=== PATIENT | female | born 1930 | race Caucasian/White ===

== ENCOUNTER 2017-04-04 10:25 | Observation (INO) | payer OTHER ==
--- NOTE | 2017-04-04 10:46 | PDOC ---
History of Present Illness - General Chief Complaint: Lightheaded Stated Complaint: PCP SENT Time Seen by Provider: 04/04/17 10:46 - History of Present Illness Initial Comments: 04/04/17 11:41 Ms. Perez is an 86 year old female with a significant past medical history of type two diabetes, osteoarthritis and DJD, hypertension, and hyperlipedemia, who presents to the emergency department on advice of her PCP for recent severe dizziness for the past 3-4 days. The patient denies chest pain, shortness of breath, and headache. Denies fever, chills, nausea, vomit, diarrhea and constipation. Denies dysuria, frequency, urgency and hematuria. Allergies: NKDA Past History - Past Medical History Allergies/Adverse Reactions: Allergies Allergy/AdvReac Type Severity Reaction Status Date / Time No Known Allergies Allergy Verified 04/04/17 10:34 Home Medications: Ambulatory Orders Unobtainable Home Med List 0 dose .ROUTE UTDICT 01/24/13 Diabetes: Yes HTN: Yes Hypercholesterolemia: Yes - Immunization History Immunization Up to Date: Yes - Suicide/Smoking/Psychosocial Hx Smoking Status: No Smoking History: Never smoked Have you smoked in the past 12 months: No Number of Cigarettes Smoked Daily: 0 Information on smoking cessation initiated: No Hx Alcohol Use: No Drug/Substance Use Hx: No Substance Use Type: None Review of Systems - Review of Systems Comments:: 04/04/17 11:44 GENERAL/CONSTITUTIONAL: No fever or chills. No weakness. HEAD, EYES, EARS, NOSE AND THROAT: No change in vision. No ear pain or discharge. No sore throat. CARDIOVASCULAR: No chest pain or shortness of breath RESPIRATORY: No cough, wheezing, or hemoptysis. GASTROINTESTINAL: No nausea, vomiting, diarrhea or constipation. GENITOURINARY: No dysuria, frequency, or change in urination. MUSCULOSKELETAL: No joint or muscle swelling or pain. No neck or back pain. SKIN: No rash NEUROLOGIC: +Dizziness for the past several weeks that has gotten worse over the last 3-4 days. No headache, vertigo, loss of consciousness, or change in strength/sensation. ENDOCRINE: No increased thirst. No abnormal weight change HEMATOLOGIC/LYMPHATIC: No anemia, easy bleeding, or history of blood clots. ALLERGIC/IMMUNOLOGIC: No hives or skin allergy. *Physical Exam - Vital Signs Last Vital Signs Temp Pulse Resp BP Pulse Ox 98.2 F 95 H 15 134/76 97 04/04/17 10:34 04/04/17 10:34 04/04/17 10:34 04/04/17 10:34 04/04/17 10:34 - Physical Exam Comments: 04/04/17 11:44 GENERAL: Awake, alert, and fully oriented, in no acute distress HEAD: No signs of trauma, normocephalic, atraumatic EYES: PERRLA, EOMI, sclera anicteric, conjunctiva clear ENT: Auricles normal inspection, hearing grossly normal, nares patent, oropharynx clear without exudates. Moist mucosa NECK: Normal ROM, supple, no lymphadenopathy, JVD, or masses LUNGS: No distress, speaks full sentences, clear to auscultation bilaterally HEART: Regular rate and rhythm, normal S1 and S2, no murmurs, rubs or gallops, peripheral pulses normal and equal bilaterally. ABDOMEN: Soft, nontender, normoactive bowel sounds. No guarding, no rebound. No masses EXTREMITIES: Normal inspection, Normal range of motion, no edema. No clubbing or cyanosis. NEUROLOGICAL: Cranial nerves II through XII grossly intact. Normal speech, normal gait, no focal sensorimotor deficits SKIN: Warm, Dry, normal turgor, no rashes or lesions noted. ED Treatment Course - LABORATORY CBC & Chemistry Diagram: 04/04/17 11:50 04/04/17 11:50 Medical Decision Making - Medical Decision Making 04/04/17 13:31 Ms. Perez presents with new unexplained dizziness for admission to Dr. William for overnight observation. Head CT negative, labs as below. Will admit for further neuro/cardiac follow-up. Laboratory Results - last 24 hr 04/04/17 04/04/17 11:50 11:50 WBC 10.4 H D RBC 4.86 Hgb 13.0 Hct 40.7 MCV 83.9 MCH 26.8 MCHC 32.0 RDW 13.7 Plt Count 169 MPV 10.6 D Neutrophils % 59.9 Lymphocytes % 25.8 D Monocytes % 11.9 H Eosinophils % 2.0 Basophils % 0.4 Sodium 143 Potassium 4.5 D Chloride 110 H D Carbon Dioxide 27 Anion Gap 6 L BUN 29 H D Creatinine 1.0 D Creat Clearance w eGFR 52.69 Random Glucose 107 H Calcium 9.0 Total Bilirubin 0.3 D AST 21 ALT 23 Alkaline Phosphatase 109 Creatine Kinase 75 Troponin I < 0.02 Total Protein 7.9 Albumin 3.8 *DC/Admit/Observation/Transfer Diagnosis at time of Disposition: Dizziness - Discharge Dispostion Admit: Yes - Referrals Referrals: Remigio William MD [Primary Care Provider] -
--- NOTE | 2017-04-04 11:09 | PDOC ---
Attending Attestation - Resident Resident Name: Tr Masterson - ED Attending Attestation I have performed the following: I have examined & evaluated the patient, The case was reviewed & discussed with the resident, I agree w/resident's findings & plan, Exceptions are as noted - HPI HPI: 04/04/17 11:08 Dizzy/Weak - Physicial Exam PE: 04/04/17 11:08 VSS/NAD - Medical Decision Making 04/04/17 11:[address] Masterson's Assessment and Plan
[2017-04-04 12:27] LABS: BASOPHIL 0.4 % (0-2.0); MCH 26.8 pg (25.7-33.7); MEAN CELL VOLUME 83.9 fl (80-96); MEAN PLT VOLUME 10.6 fl (7.5-11.1); NEUTROPHILS 59.9 % (42.8-82.8); PLATELET COUNT 169 K/MM3 (134-434); RDW 13.7 % (11.6-15.6); WHITE BLOOD COUNT 10.4 K/mm3 (4.0-10.0)
[2017-04-04 12:58] LABS: ALBUMIN 3.8 g/dl (3.4-5.0); ANION GAP 6 (8-16); BILIRUBIN,TOTAL 0.3 mg/dL (0.2-1.0); CO2 27 mmol/L (21-32); GLUCOSE,RANDOM 107 mg/dL (74-106); SGOT/AST 21 U/L (15-37); SGPT/ALT 23 U/L (12-78); TOT PROT 7.9 g/dl (6.4-8.2)
[2017-04-04 13:01] LABS: ALK PHOS 109 U/L (45-117); CPK 75 IU/L (26-192); TROPONIN I < 0.02 ng/ml (0.00-0.05)
--- NOTE | 2017-04-04 13:08 | EKG ---
Test Reason : Blood Pressure : / mmHG Vent. Rate : 090 BPM Atrial Rate : 090 BPM P-R Int : 140 ms QRS Dur : 078 ms QT Int : 360 ms P-R-T Axes : 053 037 058 degrees QTc Int : 440 ms SINUS RHYTHM WITH ATRIAL PREMATURE BEATS NORMAL ST-T WAVES WHEN COMPARED WITH ECG OF 24-JAN-2013 12:14, NO MAJOR CHANGES SEEN. REPEAT EKG IF CLINICALLY INDICATED Confirmed by MELISSA ALFONSO MD ([id number]) on 04/04/2017 1:07:59 PM Referred By: Confirmed By:MELISSA ALFONSO MD
[2017-04-04] MEDS ORDERED: MECLIZINE HCL 25 MG TABLET (FP) PO ONE (13:45)
[2017-04-04] MEDS ORDERED: SODIUM CHLORIDE 1,000 ML IV STA (13:45)
[2017-04-04] MEDS ORDERED: MECLIZINE HCL 25 MG TABLET (FP) ONE (13:50)
[2017-04-04 14:19] LABS: URINE APPEARANCE CLEAR; URINE BILIRUBIN NEGATIVE (NEGATIVE); URINE BLOOD NEGATIVE (NEGATIVE); URINE COLOR LTYELLOW; URINE GLUCOSE (UA) NEGATIVE (NEGATIVE); URINE KETONE NEGATIVE (NEGATIVE); URINE LEUK ESTERASE TRACE (NEGATIVE); URINE NITRITE NEGATIVE (NEGATIVE); URINE PROTEIN NEGATIVE (NEGATIVE); URINE UROBILINOGEN NEGATIVE mg/dL (0.2-1.0)
[2017-04-04 14:21] LABS: URINE HYALINE CAST 3 /lpf; URINE RBC 1 /hpf (0-3); URINE WBC 2 /hpf (3-5)
[2017-04-04 16:10] VITALS: BMI 35.9
[2017-04-04] MEDS ORDERED: FLU VACCINE QUAD 60 MCG/0.5 ML (MDV 17-18) IM ONE (16:10)
--- NOTE | 2017-04-04 16:22 | CON.CARD ---
Consult Consult Specialty:: Cardiology Referred by:: Dr. William Reason for Consultation:: Near syncope - History of Present Illness Chief Complaint: Dizziness and heaviness of the head. History of Present Illness: 86 year-old woman with a PMHx of HTN, DM, hyperlipidemia and osteoarthritis admitted 04/04/2017 with near syncope. The patient has been experiencing heaviness at the back of her head, pushing her forward with associated weakness for 3-4 days. Her symptoms could last for all day with episodes of near syncope. She denies chest pain, SOB at rest or palpitation. She has sedentary life with limited exercise tolerance. Her ECG in ED is normal. - History Source History Provided By: Patient, Transfer Record Limitations to Obtaining History: Poor Historian - Past Medical History Musculoskeletal: Yes: Osteoarthritis - Alcohol/Substance Use Hx Alcohol Use: No - Smoking History Smoking history: Never smoked Have you smoked in the past 12 months: No Aproximately how many cigarettes per day: 0 - Social History History of Recent Travel: No Home Medications - Allergies Allergies/Adverse Reactions: Allergies Allergy/AdvReac Type Severity Reaction Status Date / Time No Known Allergies Allergy Verified 04/04/17 10:34 - Home Medications Home Medications: Ambulatory Orders Unobtainable Home Med List 0 dose .ROUTE UTDICT 01/24/13 Review of Systems - Review of Systems Constitutional: reports: No Symptoms Eyes: reports: No Symptoms HENT: reports: No Symptoms Neck: reports: No Symptoms Cardiovascular: reports: No Symptoms Respiratory: reports: No Symptoms Gastrointestinal: reports: No Symptoms Genitourinary: reports: No Symptoms Musculoskeletal: reports: Extremity Pain, Joint Pain Integumentary: reports: No Symptoms Neurological: reports: Syncope Endocrine: reports: No Symptoms Hematology/Lymphatic: reports: No Symptoms Psychiatric: reports: No Symptoms - Risk Factors Known Risk Factors: Yes: Diabetes Mellitus, Hypercholesterolemia, Hypertension Vital Signs: Vital Signs Temperature 98.2 F 04/04/17 10:34 Pulse Rate 92 H 04/04/17 15:35 Respiratory Rate 18 04/04/17 15:35 Blood Pressure 136/76 04/04/17 15:35 O2 Sat by Pulse Oximetry (%) 93 L 04/04/17 15:35 Constitutional: Yes: Well Nourished, No Distress, Calm Eyes: Yes: Conjunctiva Clear, EOM Intact HENT: Yes: Atraumatic, Normocephalic Neck: Yes: Supple, Trachea Midline Respiratory: Yes: Regular, Other (Bibasilar crackles) Gastrointestinal: Yes: Normal Bowel Sounds, Soft Cardiovascular: Yes: Regular Rate and Rhythm Heart Sounds: Yes: S1, S2 Murmur: Yes: Systolic Murmur, Grade 1 Musculoskeletal: Yes: WNL Edema: Yes Edema: LLE: Trace, RLE: Trace Peripheral Pulses WNL: Yes Imaging - Results EKG: Image Reviewed (Sinus rhythm, normal axis. Normal ST-T.) Assessment/Plan 86 year-old woman with a PMHx of HTN, DM, hyperlipidemia and osteoarthritis admitted 04/04/2017 with near syncope with sensation of occipital heaviness. She has mild fluid overload without SOB at rest. Her BP and heart rate stable. ECG is normal. The etiology of her symptoms of her occipital heaviness and near syncope is unclear. But likely neurological origin. Neuro evaluation. Tele to rule out cardiac arrhythmia. Mild fluid overload without dyspnea: Echo for cardiac function. Resume home BP meds. We will follow.
[2017-04-04] MEDS ORDERED: ACETAMINOPHEN 325 MG TABLET (FP) PO PRN (20:16)
[2017-04-04] MEDS ORDERED: MECLIZINE HCL 25 MG TABLET (FP) PO PRN (20:16)
--- NOTE | 2017-04-04 20:54 | HP ---
Admitting History and Physical - Primary Care Physician PCP: Remigio William - Admission Chief Complaint: DIZZINESS, PALPITATIONS FATIGUE History of Present Illness: I WAS CALLED BY THE PHYSICAL THERAPIST AT HER PT SESSION AND HE EXPLAINED THAT THE PATIENT WAS C/O DIZZINESS AND CHEST HEAVINESS/PRESSURE. PATIENT DENIED VERTIGO BUT C/O LIGHT HEADED FEELING WITH EXTREME FATIGUE. PATIENT HAS A HISTORY OF HTN, LIPIDEMIA, OBESITY WITH UNSTEADY GAIT AND WAS REFERRED TO PHYSICAL THERAPY FOR GAIT TRAINING. History Source: Patient, Medical Record - Past Medical History Cardiovascular: Yes: HTN Musculoskeletal: Yes: Osteoarthritis - Smoking History Smoking history: Never smoked Have you smoked in the past 12 months: No Aproximately how many cigarettes per day: 0 - Alcohol/Substance Use Hx Alcohol Use: No - Social History History of Recent Travel: No Home Medications - Allergies Allergies/Adverse Reactions: Allergies Allergy/AdvReac Type Severity Reaction Status Date / Time No Known Allergies Allergy Verified 04/04/17 10:34 - Home Medications Home Medications: Ambulatory Orders Unobtainable Home Med List 0 dose .ROUTE UTDICT 01/24/13 Review of Systems - Review of Systems Constitutional: reports: Weakness Eyes: reports: No Symptoms HENT: reports: No Symptoms Neck: reports: No Symptoms Cardiovascular: reports: Chest Pain, Palpitations, Shortness of Breath Respiratory: reports: SOB Gastrointestinal: reports: No Symptoms Genitourinary: reports: No Symptoms Musculoskeletal: reports: No Symptoms Integumentary: reports: No Symptoms Neurological: reports: Pre-Existing Deficit, Unsteady Gait, Weakness Endocrine: reports: No Symptoms Hematology/Lymphatic: reports: No Symptoms Psychiatric: reports: No Symptoms Physical Examination Vital Signs: Vital Signs Temperature 98.2 F 04/04/17 10:34 Pulse Rate 92 H 04/04/17 15:35 Respiratory Rate 20 04/04/17 17:19 Blood Pressure 136/76 04/04/17 15:35 O2 Sat by Pulse Oximetry (%) 96 04/04/17 17:19 Constitutional: Yes: Mild Distress Eyes: Yes: WNL HENT: Yes: WNL Neck: Yes: WNL Cardiovascular: Yes: WNL Respiratory: Yes: WNL Gastrointestinal: Yes: WNL Renal/: Yes: WNL Musculoskeletal: Yes: WNL Extremities: Yes: WNL Edema: Yes Edema: LLE: Trace, RLE: Trace Peripheral Pulses WNL: Yes Integumentary: Yes: WNL Wound/Incision: Yes: Clean/Dry Neurological: Yes: Pre-Existing Deficit ...Motor Strength: LLE, RLE Psychiatric: Yes: WNL Problem List - Problems (1) Dizziness Code(s): R42 - DIZZINESS AND GIDDINESS (2) Chest pain Code(s): R07.9 - CHEST PAIN, UNSPECIFIED Qualifiers: Chest pain type: chest pain on breathing Qualified Code(s): R07.1 - Chest pain on breathing; R07.81 - Pleurodynia (3) Hypertension Code(s): I10 - ESSENTIAL (PRIMARY) HYPERTENSION Qualifiers: Hypertension type: essential hypertension Qualified Code(s): I10 - Essential (primary) hypertension (4) Obesity Code(s): E66.9 - OBESITY, UNSPECIFIED Qualifiers: Obesity type: due to excess calories (5) Gait abnormality Code(s): R26.9 - UNSPECIFIED ABNORMALITIES OF GAIT AND MOBILITY Assessment/Plan STRESS TEST CARDIOLOGY EVAL PT EVAL CAROTID/ECHO R/O SYNCOPE CAUSE MONITOR LABS TELE FOR ARRYTHMIA EVAL SN[facility]
[2017-04-04] MEDS: ATORVASTATIN CA 20 MG TABLET (FP) PO SCH (21:09)
[2017-04-05 07:22] LABS: MCH 26.5 pg (25.7-33.7); MCHC 31.7 g/dl (32.0-36.0); MEAN CELL VOLUME 83.6 fl (80-96); MEAN PLT VOLUME 10.4 fl (7.5-11.1); PLATELET COUNT 154 K/MM3 (134-434); RDW 13.5 % (11.6-15.6); WHITE BLOOD COUNT 9.8 K/mm3 (4.0-10.0)
[2017-04-05 07:43] LABS: ALBUMIN 3.3 g/dl (3.4-5.0); ANION GAP 7 (8-16); CALCIUM 8.5 mg/dL (8.5-10.1); CO2 27 mmol/L (21-32); GLUCOSE,RANDOM 117 mg/dL (74-106)
[2017-04-05 07:48] LABS: ALK PHOS 98 U/L (45-117); BILIRUBIN,TOTAL 0.3 mg/dL (0.2-1.0); CHOLESTEROL 164 mg/dL (50-200); CREATININE 0.8 mg/dL (0.55-1.02); SGOT/AST 17 U/L (15-37); SGPT/ALT 18 U/L (12-78); TOT PROT 6.8 g/dl (6.4-8.2)
[2017-04-05 09:01] LABS: CPK 57 IU/L (26-192)
[2017-04-05 09:06] LABS: TROPONIN I < 0.02 ng/ml (0.00-0.05)
[2017-04-05] MEDS ORDERED: DIPYRIDAMOLE STRESS TEST 41.5 MG in DEXTROSE 5%-WATER - 33.2 ML IVPB ONE (10:00)
--- NOTE | 2017-04-05 10:35 | CONSULT ---
Consult - text type - Consultation Consultation Note: Neurology History of Present Illness Ms. Perez is an 86 year old female with a significant past medical history of type two diabetes, osteoarthritis and DJD, hypertension, and hyperlipedemia, who presented to the emergency department on advice of her PCP for recent severe dizziness for the past 3-4 days. She reports unsteady sensation and was given Meclezine with some relief. CT head was completed and did not show acute changes. The patient denies chest pain, shortness of breath, and headache. Denies fever, chills, nausea, vomit, diarrhea and constipation. Denies dysuria, frequency, urgency and hematuria. Past History - Past Medical History Allergies/Adverse Reactions: Allergies Allergy/AdvReac Type Severity Reaction Status Date / Time No Known Allergies Allergy Verified 04/04/17 10:34 Home Medications: Ambulatory Orders Unobtainable Home Med List 0 dose .ROUTE UTDICT 01/24/13 Diabetes: Yes HTN: Yes Hypercholesterolemia: Yes - Immunization History Immunization Up to Date: Yes - Suicide/Smoking/Psychosocial Hx Smoking Status: No Smoking History: Never smoked Have you smoked in the past 12 months: No Number of Cigarettes Smoked Daily: 0 Information on smoking cessation initiated: No Hx Alcohol Use: No Drug/Substance Use Hx: No Substance Use Type: None Review of Systems GENERAL/CONSTITUTIONAL: No fever or chills. No weakness. HEAD, EYES, EARS, NOSE AND THROAT: No change in vision. No ear pain or discharge. No sore throat. CARDIOVASCULAR: No chest pain or shortness of breath RESPIRATORY: No cough, wheezing, or hemoptysis. GASTROINTESTINAL: No nausea, vomiting, diarrhea or constipation. GENITOURINARY: No dysuria, frequency, or change in urination. MUSCULOSKELETAL: No joint or muscle swelling or pain. No neck or back pain. SKIN: No rash NEUROLOGIC: +Dizziness for the past several weeks that has gotten worse over the last 3-4 days. No headache, vertigo, loss of consciousness, or change in strength/sensation. ENDOCRINE: No increased thirst. No abnormal weight change HEMATOLOGIC/LYMPHATIC: No anemia, easy bleeding, or history of blood clots. ALLERGIC/IMMUNOLOGIC: No hives or skin allergy. *Physical Exam Vital Signs Temperature 97.9 F 04/05/17 05:00 Pulse Rate 76 04/05/17 05:00 Respiratory Rate 20 04/05/17 05:00 Blood Pressure 137/79 04/05/17 05:00 O2 Sat by Pulse Oximetry (%) 97 04/05/17 04:17 - Physical Exam Comments: 04/04/17 11:44 GENERAL: Awake, alert, and fully oriented, in no acute distress HEAD: No signs of trauma, normocephalic, atraumatic EYES: PERRLA, EOMI, sclera anicteric, conjunctiva clear ENT: Auricles normal inspection, hearing grossly normal, nares patent, oropharynx clear without exudates. Moist mucosa NECK: Normal ROM, supple, no lymphadenopathy, JVD, or masses LUNGS: No distress, speaks full sentences, clear to auscultation bilaterally HEART: Regular rate and rhythm, normal S1 and S2, no murmurs, rubs or gallops, peripheral pulses normal and equal bilaterally. ABDOMEN: Soft, nontender, normoactive bowel sounds. No guarding, no rebound. No masses EXTREMITIES: Normal inspection, Normal range of motion, no edema. No clubbing or cyanosis. NEUROLOGICAL: Cranial nerves II through XII grossly intact. Motor intact, sensory normal, finger to nose intact SKIN: Warm, Dry, normal turgor, no rashes or lesions noted. CBCD WBC 9.8 K/mm3 (4.0-10.0) 04/05/17 05:30 RBC 4.66 M/mm3 (3.60-5.2) 04/05/17 05:30 Hgb 12.3 GM/dL (10.7-15.3) 04/05/17 05:30 Hct 38.9 % (32.4-45.2) 04/05/17 05:30 MCV 83.6 fl (80-96) 04/05/17 05:30 MCHC 31.7 g/dl (32.0-36.0) L 04/05/17 05:30 RDW 13.5 % (11.6-15.6) 04/05/17 05:30 Plt Count 154 K/MM3 (134-434) 04/05/17 05:30 MPV 10.4 fl (7.5-11.1) 04/05/17 05:30 CMP Sodium 142 mmol/L (136-145) 04/05/17 05:30 Potassium 4.1 mmol/L (3.5-5.1) 04/05/17 05:30 Chloride 108 mmol/L (98-107) H 04/05/17 05:30 Carbon Dioxide 27 mmol/L (21-32) 04/05/17 05:30 Anion Gap 7 (8-16) L 04/05/17 05:30 BUN 21 mg/dL (7-18) H D 04/05/17 05:30 Creatinine 0.8 mg/dL (0.55-1.02) 04/05/17 05:30 Creat Clearance w eGFR > 60 (>60) 04/05/17 05:30 Calcium 8.5 mg/dL (8.5-10.1) 04/05/17 05:30 Total Bilirubin 0.3 mg/dL (0.2-1.0) 04/05/17 05:30 AST 17 U/L (15-37) 04/05/17 05:30 ALT 18 U/L (12-78) D 04/05/17 05:30 Alkaline Phosphatase 98 U/L (45-117) 04/05/17 05:30 Total Protein 6.8 g/dl (6.4-8.2) 04/05/17 05:30 Albumin 3.3 g/dl (3.4-5.0) L 04/05/17 05:30 CT head reviewed Plan: 86 year old female with a significant past medical history of type two diabetes , osteoarthritis and DJD, hypertension, and hyperlipedemia, who presented to the emergency department on advice of her PCP for recent severe dizziness for the past 3-4 days. She reports unsteady sensation and was given Meclezine with some relief. CT head was completed and did not show acute changes. MRI brain ordered. Continue Meclezine 25mg PRN. No sudden head movements, eply manuevers. Blood pressure control, goal range < 140/90. Fall precautions recommended.
[2017-04-05] MEDS: amLODIPine BESYLATE 10 MG TABLET (FP) PO SCH (13:10)
[2017-04-05] MEDS: LISINOPRIL 20 MG TABLET (FP) PO SCH (13:10)
[2017-04-05] MEDS: ASPIRIN COATED 81 MG TABLET.EC PO SCH (13:11)
--- NOTE | 2017-04-05 14:33 | PN ---
Progress Note, Physician Chief Complaint: Patient has improved dizziness. She has no recurrent chest pain. No SOB or palpitation. Tele shows sinus with rare APCs. History of Present Illness: 86 year-old woman with a PMHx of HTN, DM, hyperlipidemia and osteoarthritis admitted 04/04/2017 with near syncope. The patient has been experiencing heaviness at the back of her head, pushing her forward with associated weakness for 3-4 days. Her symptoms could last for all day with episodes of near syncope. She denies chest pain, SOB at rest or palpitation. She has sedentary life with limited exercise tolerance. Echo 04/05/2017 showed mild to moderate apical hypokinesis with preserved LV systolic function. Nuclear stress test planned. - Current Medication List Current Medications: Active Medications Acetaminophen (Tylenol -) 650 mg PO Q6H PRN PRN Reason: FEVER OR PAIN Amlodipine Besylate (Norvasc -) 10 mg PO DAILY [facility] Last Admin: 04/05/17 13:10 Dose: 10 mg Aspirin (Ecotrin -) 81 mg PO DAILY [facility] Last Admin: 04/05/17 13:11 Dose: 81 mg Atorvastatin Calcium (Lipitor -) 20 mg PO HS [facility] Last Admin: 04/04/17 21:09 Dose: 20 mg Lisinopril (Prinivil) 20 mg PO DAILY [facility] Last Admin: 04/05/17 13:10 Dose: 20 mg Meclizine HCl (Antivert -) 25 mg PO Q6H PRN PRN Reason: VERTIGO - Objective Vital Signs: Vital Signs Temperature 97.9 F 04/05/17 05:00 Pulse Rate 76 04/05/17 05:00 Respiratory Rate 20 04/05/17 05:00 Blood Pressure 137/79 04/05/17 05:00 O2 Sat by Pulse Oximetry (%) 97 04/05/17 04:17 Constitutional: Yes: Well Nourished Eyes: Yes: Conjunctiva Clear, EOM Intact HENT: Yes: Atraumatic, Normocephalic Neck: Yes: Supple, Trachea Midline Cardiovascular: Yes: Regular Rate and Rhythm Respiratory: Yes: Regular, CTA Bilaterally Gastrointestinal: Yes: Normal Bowel Sounds, Soft, Abdomen, Obese ...Rectal Exam: Yes: Deferred Musculoskeletal: Yes: Back Pain Edema: Yes Edema: LLE: Trace, RLE: Trace Peripheral Pulses WNL: Yes Labs: CBC, BMP 04/05/17 05:30 04/05/17 05:30 Assessment/Plan 86 year-old woman with a PMHx of HTN, DM, hyperlipidemia and osteoarthritis admitted 04/04/2017 with near syncope with sensation of occipital heaviness. She has reported chest pain. Echo 04/05/2017 showed mild to moderate apical hypokinesis with preserved LV systolic function. Nuclear stress test planned. Neurology evaluation appreciated. Agree with nuclear stress test to rule out significant CAD since she has apical hypokinesis. Continue aspirin, atorvastatin for now. We will follow.
--- NOTE | 2017-04-05 15:11 | PN ---
Progress Note (short form) - Note Progress Note: Persantine nuclear stress test 04/05/2017 showed moderate size and moderate severity stress induced ischemia of lateral wall. Cardiac cath is scheduled for tomorrow at [facility]. I spoke with the patient through a trailer driver and her daughter. They agreed to the procedure. Case discussed with Dr. William.
--- NOTE | 2017-04-05 15:15 | DS ---
Physical Examination Vital Signs: Vital Signs Temperature 97.5 F L 04/05/17 15:00 Pulse Rate 88 04/05/17 15:00 Respiratory Rate 18 04/05/17 15:00 Blood Pressure 136/61 04/05/17 15:00 O2 Sat by Pulse Oximetry (%) 97 04/05/17 04:17 Constitutional: Yes: Mild Distress Eyes: Yes: WNL HENT: Yes: WNL, Nasal Congestion Neck: Yes: WNL Cardiovascular: Yes: WNL Respiratory: Yes: WNL Gastrointestinal: Yes: WNL Renal/: Yes: WNL Musculoskeletal: Yes: WNL Extremities: Yes: WNL Edema: Yes Edema: LLE: Trace, RLE: Trace Peripheral Pulses WNL: Yes Integumentary: Yes: WNL Wound/Incision: Yes: Clean/Dry Neurological: Yes: WNL ...Motor Strength: WNL Psychiatric: Yes: WNL Labs: CBC, BMP 04/05/17 05:30 04/05/17 05:30 Discharge Summary Reason For Visit: DIZZINESS Current Active Problems Chest pain (Acute) Dizziness (Acute) Gait abnormality (Acute) Hypertension (Acute) Obesity (Acute) Procedures: Principal: stress test Hospital Course: positive stress test will transfer for cardiac cath Condition: Fair - Instructions Referrals: Remigio William MD [Primary Care Provider] - Disposition: TRANSFER ACUTE CARE/OTHER HOSP - Home Medications Comprehensive Discharge Medication List: Ambulatory Orders Unobtainable Home Med List 0 dose .ROUTE UTDICT 01/24/13 Acetaminophen [Tylenol .Regular Strength -] 650 mg PO Q6H PRN #0 tablet Amlodipine Besylate [Norvasc -] 10 mg PO DAILY tablet 04/05/17 Atorvastatin Ca [Lipitor] 20 mg PO HS tablet 04/05/17 Lisinopril [Prinivil] 20 mg PO DAILY tablet 04/05/17 Meclizine HCl [Antivert -] 25 mg PO Q6H PRN #0 tablet 04/05/17
[2017-04-05] MEDS: ATORVASTATIN CA 20 MG TABLET (FP) PO SCH (21:57)
--- NOTE | 2017-04-06 09:24 | PN ---
Progress Note (short form) - Note Progress Note: Neurology History of Present Illness Ms. Perez is an 86 year old female with a significant past medical history of type two diabetes, osteoarthritis and DJD, hypertension, and hyperlipedemia, who presented to the emergency department on advice of her PCP for recent severe dizziness for the past 3-4 days. She reports unsteady sensation and was given Meclezine with good relief now. CT head was completed and did not show acute changes. The patient denies chest pain, shortness of breath, and headache. Denies fever, chills, nausea, vomit, diarrhea and constipation. Denies dysuria, frequency, urgency and hematuria. She reports her dizzyness is much better. She is up for transfer for cardiac cath today. MRI had been ordered but will d/c as patient at baseline and asymptomatic. *Physical Exam Vital Signs Period Temp Pulse Resp BP Sys/Burk Pulse Ox Last 24 Hr 97.5 F-98.6 F 82-94 18-20 113-136/60-74 97 - Physical Exam Comments: 04/04/17 11:44 GENERAL: Awake, alert, and fully oriented, in no acute distress HEAD: No signs of trauma, normocephalic, atraumatic EYES: PERRLA, EOMI, sclera anicteric, conjunctiva clear ENT: Auricles normal inspection, hearing grossly normal, nares patent, oropharynx clear without exudates. Moist mucosa NECK: Normal ROM, supple, no lymphadenopathy, JVD, or masses LUNGS: No distress, speaks full sentences, clear to auscultation bilaterally HEART: Regular rate and rhythm, normal S1 and S2, no murmurs, rubs or gallops, peripheral pulses normal and equal bilaterally. ABDOMEN: Soft, nontender, normoactive bowel sounds. No guarding, no rebound. No masses EXTREMITIES: Normal inspection, Normal range of motion, no edema. No clubbing or cyanosis. NEUROLOGICAL: Cranial nerves II through XII grossly intact. Motor intact, sensory normal, finger to nose intact SKIN: Warm, Dry, normal turgor, no rashes or lesions noted. CBCD WBC 9.8 K/mm3 (4.0-10.0) 04/05/17 05:30 RBC 4.66 M/mm3 (3.60-5.2) 04/05/17 05:30 Hgb 12.3 GM/dL (10.7-15.3) 04/05/17 05:30 Hct 38.9 % (32.4-45.2) 04/05/17 05:30 MCV 83.6 fl (80-96) 04/05/17 05:30 MCHC 31.7 g/dl (32.0-36.0) L 04/05/17 05:30 RDW 13.5 % (11.6-15.6) 04/05/17 05:30 Plt Count 154 K/MM3 (134-434) 04/05/17 05:30 MPV 10.4 fl (7.5-11.1) 04/05/17 05:30 CMP Sodium 142 mmol/L (136-145) 04/05/17 05:30 Potassium 4.1 mmol/L (3.5-5.1) 04/05/17 05:30 Chloride 108 mmol/L (98-107) H 04/05/17 05:30 Carbon Dioxide 27 mmol/L (21-32) 04/05/17 05:30 Anion Gap 7 (8-16) L 04/05/17 05:30 BUN 21 mg/dL (7-18) H D 04/05/17 05:30 Creatinine 0.8 mg/dL (0.55-1.02) 04/05/17 05:30 Creat Clearance w eGFR > 60 (>60) 04/05/17 05:30 Calcium 8.5 mg/dL (8.5-10.1) 04/05/17 05:30 Total Bilirubin 0.3 mg/dL (0.2-1.0) 04/05/17 05:30 AST 17 U/L (15-37) 04/05/17 05:30 ALT 18 U/L (12-78) D 04/05/17 05:30 Alkaline Phosphatase 98 U/L (45-117) 04/05/17 05:30 Total Protein 6.8 g/dl (6.4-8.2) 04/05/17 05:30 Albumin 3.3 g/dl (3.4-5.0) L 04/05/17 05:30 CT head reviewed Plan: 86 year old female with a significant past medical history of type two diabetes , osteoarthritis and DJD, hypertension, and hyperlipedemia, who presented to the emergency department on advice of her PCP for recent severe dizziness for the past 3-4 days. She reports unsteady sensation and was given Meclezine with good relief. CT head was completed and did not show acute changes. MRI brain discontinued. Continue Meclezine 25mg PRN. No sudden head movements, eply manuevers. Blood pressure control, goal range < 140/90. Fall precautions recommended. For transfer in order to have cardiac cath. Cleared neurologically , no further recommendations as this time.
[2017-04-06 10:08] VITALS: BP 134/68; PULSE 78; TEMP 97.9
[2017-04-06] MEDS: amLODIPine BESYLATE 10 MG TABLET (FP) PO SCH (10:12)
[2017-04-06] MEDS: ASPIRIN COATED 81 MG TABLET.EC PO SCH (10:12)
[2017-04-06] MEDS: LISINOPRIL 20 MG TABLET (FP) PO SCH (10:12)
--- NOTE | 2017-04-06 11:31 | PN ---
Progress Note (short form) - Note Progress Note: ACUTE CORONARY SYNDROME TRANSFERRING TO [facility] FOR CARDIAC CATH FORMS COMPLETED Problem List - Problems (1) Dizziness Code(s): R42 - DIZZINESS AND GIDDINESS (2) Chest pain Code(s): R07.9 - CHEST PAIN, UNSPECIFIED Qualifiers: Chest pain type: chest pain on breathing Qualified Code(s): R07.1 - Chest pain on breathing; R07.81 - Pleurodynia (3) Hypertension Code(s): I10 - ESSENTIAL (PRIMARY) HYPERTENSION Qualifiers: Hypertension type: essential hypertension Qualified Code(s): I10 - Essential (primary) hypertension (4) Obesity Code(s): E66.9 - OBESITY, UNSPECIFIED Qualifiers: Obesity type: due to excess calories (5) Gait abnormality Code(s): R26.9 - UNSPECIFIED ABNORMALITIES OF GAIT AND MOBILITY
== END 2017-04-06 11:56 | disposition short-term general hospital (02) ==
LOC: JER 10:25 → UNDOADMOB 13:30 → JERBED 13:30 → INTOOBSV 13:30 → J4W 15:53 → JERBED 15:53 → J4W 15:55
PROVIDERS: ADMIT Family Medicine; ATTEND Family Medicine
PROC: 3E033GC Introduction of Other Therapeutic Substance into Peripheral Vein, Percutaneous Approach (ICD-10-PCS; principal; 2017-04-04)
PROC: 3E0337Z Introduction of Electrolytic and Water Balance Substance into Peripheral Vein, Percutaneous Approach (ICD-10-PCS; 2017-04-04)
DX: R42 Dizziness and giddiness (principal); I10 Essential (primary) hypertension; E78.5 Hyperlipidemia, unspecified; E11.9 Type 2 diabetes mellitus without complications; M19.90 Unspecified osteoarthritis, unspecified site; E87.70 Fluid overload, unspecified; E66.9 Obesity, unspecified; Z68.35 Body mass index [BMI] 35.0-35.9, adult; R07.9 Chest pain, unspecified; R26.2 Difficulty in walking, not elsewhere classified; I25.9 Chronic ischemic heart disease, unspecified
CPT/HCPCS: 36415; 70450-TC; 71020-TC; 78452-TC; 80053; 80061; 81003; 81015; 83036; 83721; 84484; 85025; 85027; 90688; 93005; 93010; 93017; 93306-TC; 93880-TC; 99283-25; A9502; G0378

== ENCOUNTER 2019-08-05 11:44 | Emergency (ER) | payer OTHER ==
[2019-08-05 11:57] VITALS: BMI 34.4
--- NOTE | 2019-08-05 12:45 | PDOC ---
History of Present Illness - General Chief Complaint: Headache Stated Complaint: HEADACHE / DIZZYNESS X3 WK Time Seen by Provider: 08/05/19 12:32 History Source: Family Exam Limitations: Language Barrier - History of Present Illness Initial Comments: 08/05/19 12:40 Patient is an 88-year-old female who presents the ED with her daughter for 3 weeks of intermittent headaches and dizziness. As per the daughter, the patient has had dizziness for several years but more so in the last few weeks. The patient has complained of headache which was treated with Tylenol and her headaches were relieved. She currently does not have a headache. The patient has not walked unassisted for 2+ years. Patient has not had any fevers or chills. She has a history of diabetes and high cholesterol. The patient has had constipation which was treated with natural supplements such as Colt seeds but now has diarrhea. The daughter states the stool is soft. The patient is full assist with the daughter and an aide. The patient denies any complaints at this time. She is also starting to have signs of early dementia. Past History - Past Medical History Allergies/Adverse Reactions: Allergies Allergy/AdvReac Type Severity Reaction Status Date / Time No Known Allergies Allergy Verified 08/05/19 11:54 Home Medications: Ambulatory Orders Unobtainable Home Med List 0 dose .ROUTE UTDICT 01/24/13 Acetaminophen [Tylenol .Regular Strength -] 650 mg PO Q6H PRN #0 tablet Amlodipine Besylate [Norvasc -] 10 mg PO DAILY tablet 04/05/17 Atorvastatin Ca [Lipitor] 20 mg PO HS tablet 04/05/17 Lisinopril [Prinivil] 20 mg PO DAILY tablet 04/05/17 Meclizine HCl [Antivert -] 25 mg PO Q6H PRN #0 tablet 04/05/17 COPD: No Diabetes: Yes HTN: Yes Hypercholesterolemia: Yes - Immunization History Immunization Up to Date: Yes - Psycho Social/Smoking Cessation Hx Smoking Status: No Smoking History: Never smoked Have you smoked in the past 12 months: No Number of Cigarettes Smoked Daily: 0 Hx Alcohol Use: No Drug/Substance Use Hx: No Substance Use Type: None Review of Systems - Review of Systems Comments:: 08/05/19 12:41 - Review of Systems Able to Perform ROS?: Yes Constitutional: No: Fever, Chills, Loss of Appetite, Night Sweats, Weakness HEENTM: No: Eye Pain, Vision changes, Ear Pain, Throat Pain, Throat Swelling, Mouth Pain, Difficulty Swallowing Respiratory: No: Cough, Shortness of Breath, Wheezing, Sputum Production Cardiac (ROS): No: Chest Pain, Chest Tightness, Palpitations, Irregular Heart Beat, Edema ABD/GI: No: Nausea, Vomiting, Abdominal Pain, Intermittent constipation and Diarrhea : No Dysuria, No Hematuria, No Frequency, No Urgency, No Vaginal Discharge/ Pain, No Penile Discharge/Pain Musculoskeletal: No: Muscle Pain, Back Pain, Joint Pain, Muscle Weakness, Neck Pain Integumentary: No: Lesions, Rash Neurological: No: Numbness, Tingling, Weakness, Speech Difficulties; + intermittent Headache and dizziness *Physical Exam - Vital Signs Last Vital Signs Temp Pulse Resp BP Pulse Ox 97.5 F L 60 18 138/59 L 95 08/05/19 11:54 08/05/19 11:54 08/05/19 11:54 08/05/19 11:54 08/05/19 11:54 - Physical Exam 08/05/19 12:43 - Physical Exam General Appearance: Nourished, Appropriately Dressed, No Distress HEENT: EOMI, Normal Voice, No Muffled/Hoarse voice, No Nasal Congestion, No Rhinorrhea, Hearing Grossly Normal, Neck: Supple, No Lymphadenopathy (R), No Lymphadenopathy (L), No Rigidity, No Decreased range of motion Respiratory/Chest: Lungs Clear, Normal Breath Sounds. No Respiratory Distress, No Accessory Muscle Use Cardiovascular: Regular Rhythm, Regular Rate, S1, S2 Gastrointestinal/Abdominal: Normal Bowel Sounds, Soft. Non-tender, No Guarding , No Rebound, No Rigidity Musculoskeletal: Normal Inspection. No Decreased Range of Motion Extremity: Normal Capillary Refill, Normal Inspection Integumentary: Normal Color, Dry. No Rash Neurologic: automatic log cut off sawyer II-XII NML intact, Fully Oriented, Alert, Normal Mood/Affect, Normal Response, + horizontal nystagmus appreciated, following commands appropriately, no slurred speech appreciated, gait unable to assess since the patient does not walk and just transfers. ED Treatment Course - LABORATORY CBC & Chemistry Diagram: 08/05/19 13:15 08/05/19 13:15 - RADIOLOGY Radiology Studies Ordered: Category Date Time Status HEAD CT WITHOUT CONTRAST [CT] Stat CT Scan 08/05/19 12:36 Ordered Medical Decision Making - Medical Decision Making 08/05/19 12:45 Patient is an 88-year-old female with intermittent headaches and dizziness. She has no evidence of an acute CVA. -Will order labs for further evaluation -We will order CT head for further evaluation -EKG ordered -We will reassess 08/05/19 15:30 Pt was visualized walking with a cane, normal steady with cane at her baseline as per daughter 08/05/19 16:28 The patient and her family have been made aware that the CAT scan does not show any acute pathology. The patient is feeling well and does not complain of any dizziness or headaches in the ED. She was walking with a normal gait with her cane which is her baseline. The patient should follow-up with her primary doctor within 1 to 2 days that she may need an outpatient MRI for further evaluation. The patient and her daughter both understand and agree with this treatment plan and the patient is stable for discharge. Discharge - Discharge Information Problems reviewed: Yes Clinical Impression/Diagnosis: Dizziness - Follow up/Referral Referrals: Remigio William MD [Primary Care Provider] - - Patient Discharge Instructions Patient Printed Discharge Instructions: DI for Headache, Combating Dizziness in Older Adults Additional Instructions: Get plenty of rest and drink plenty of fluids. Do not walk without assistance to help prevent falls. You can take Tylenol for headaches. You may require an outpatient MRI which Dr. William can order if he deems necessary. Return to the ED for severe headaches, profuse vomiting, worsening dizziness or any other worsening symptoms. Print Language: OCCITAN - Post Discharge Activity
--- NOTE | 2019-08-05 13:46 | EKG ---
Test Reason : Blood Pressure : / mmHG Vent. Rate : 063 BPM Atrial Rate : 063 BPM P-R Int : 144 ms QRS Dur : 072 ms QT Int : 434 ms P-R-T Axes : 040 027 058 degrees QTc Int : 444 ms POOR DATA QUALITY, INTERPRETATION MAY BE ADVERSELY AFFECTED NORMAL SINUS RHYTHM NORMAL ECG WHEN COMPARED WITH ECG OF 04-APR-2017 10:57, NO SIGNIFICANT CHANGE WAS FOUND Confirmed by Danielle Lara ([id number]) on 08/05/2019 1:46:08 PM Referred By: Confirmed By:Danielle Lara
[2019-08-05 13:53] LABS: BASO % 0.3 % (0-2.0); EOS % 1.1 % (0-4.5); HEMOGLOBIN 14.4 GM/dL (10.7-15.3); LYMPH % 23.2 % (8-40); MCH 26.7 pg (25.7-33.7); MCHC 31.9 g/dl (32.0-36.0); MEAN CELL VOLUME 83.6 fl (80-96); MEAN PLT VOLUME 10.5 fl (7.5-11.1); MONO % 9.3 % (3.8-10.2); NEUT % 66.1 % (42.8-82.8); PLATELET COUNT 163 K/MM3 (134-434); RBC 5.38 M/mm3 (3.60-5.2); RDW 13.7 % (11.6-15.6); WHITE BLOOD COUNT 9.1 K/mm3 (4.0-10.0)
[2019-08-05 14:09] LABS: INR 1.07 (0.83-1.09); PROTHROMBIN TIME (PATIENT) 12.6 SEC (9.7-13.0)
[2019-08-05 14:12] LABS: ACTIVATED PTT 30.6 SECONDS (25.2-36.5)
[2019-08-05 14:28] LABS: ALBUMIN 3.8 g/dl (3.4-5.0); ALK PHOS 112 U/L (45-117); ANION GAP 4 MMOL/L (8-16); BILIRUBIN,TOTAL 0.4 mg/dL (0.2-1); BLOOD UREA NITROGEN 18.3 mg/dL (7-18); CALCIUM 9.7 mg/dL (8.5-10.1); CHLORIDE 109 mmol/L (98-107); CO2 30 mmol/L (21-32); GLUCOSE,RANDOM 116 mg/dL (74-106); POTASSIUM 4.5 mmol/L (3.5-5.1); SGOT/AST 19 U/L (15-37); SGPT/ALT 25 U/L (13-61); SODIUM 143 mmol/L (136-145); TOT PROT 7.8 g/dl (6.4-8.2)
[2019-08-05 16:03] VITALS: BP 130/71; PULSE 66; TEMP 97.9
== END 2019-08-05 16:46 | disposition home or self-care (01) ==
LOC: JER 11:44
DX: R42 Dizziness and giddiness (principal); Z99.89 Dependence on other enabling machines and devices; I10 Essential (primary) hypertension; E78.00 Pure hypercholesterolemia, unspecified; E11.9 Type 2 diabetes mellitus without complications
CPT/HCPCS: 36415; 70450-TC; 80053; 82550; 84484; 85025; 85610; 85730; 93005; 93010; 99283-25

== ENCOUNTER 2020-01-15 10:53 | Emergency (ER) | payer OTHER ==
[2020-01-15 11:37] VITALS: TEMP 98.9; BMI 34.4
[2020-01-15] MEDS ORDERED: SODIUM CHLORIDE 500 ML IV STA (11:46)
[2020-01-15 12:07] LABS: BASO % 0.5 % (0-2.0); EOS % 1.6 % (0-4.5); HEMATOCRIT 41.2 % (32.4-45.2); HEMOGLOBIN 13.2 GM/dL (10.7-15.3); LYMPH % 23.5 % (8-40); MCH 27.2 pg (25.7-33.7); MEAN CELL VOLUME 85.2 fl (80-96); MEAN PLT VOLUME 9.7 fl (7.5-11.1); MONO % 8.3 % (3.8-10.2); NEUT % 66.1 % (42.8-82.8); PLATELET COUNT 161 K/MM3 (134-434); RBC 4.84 M/mm3 (3.60-5.2); RDW 14.4 % (11.6-15.6)
[2020-01-15 12:37] LABS: ALBUMIN 3.6 g/dl (3.4-5.0); ALK PHOS 78 U/L (45-117); ANION GAP 5 MMOL/L (8-16); BILIRUBIN,TOTAL 0.3 mg/dL (0.2-1); BLOOD UREA NITROGEN 21.5 mg/dL (7-18); CALCIUM 9.1 mg/dL (8.5-10.1); CHLORIDE 110 mmol/L (98-107); CO2 28 mmol/L (21-32); GLUCOSE,RANDOM 153 mg/dL (74-106); POTASSIUM 4.4 mmol/L (3.5-5.1); SGOT/AST 20 U/L (15-37); SGPT/ALT 25 U/L (13-61); SODIUM 142 mmol/L (136-145); TOT PROT 7.3 g/dl (6.4-8.2)
--- NOTE | 2020-01-15 13:15 | EKG ---
Test Reason : Blood Pressure : / mmHG Vent. Rate : 083 BPM Atrial Rate : 083 BPM P-R Int : 148 ms QRS Dur : 076 ms QT Int : 378 ms P-R-T Axes : 047 041 062 degrees QTc Int : 444 ms SINUS RHYTHM WITH PREMATURE ATRIAL COMPLEXES CANNOT RULE OUT ANTERIOR INFARCT , AGE UNDETERMINED ABNORMAL ECG WHEN COMPARED WITH ECG OF 05-AUG-2019 13:20, PREMATURE ATRIAL COMPLEXES ARE NOW PRESENT Confirmed by MD Camden, Juan ([id number]) on 01/15/2020 1:15:17 PM Referred By: Confirmed By:Juan Hannah MD
--- NOTE | 2020-01-15 14:42 | PDOC ---
Documentation entered by Raina Worthy SCRIBE, acting as scribe for Gary Barnett MD. Gary Barnett MD: This documentation has been prepared by the Anne mace Nirvannie, SCRIBE, under my direction and personally reviewed by me in its entirety. I confirm that the documentation accurately reflects all work, treatment, procedures, and medical decision making performed by me. History of Present Illness - General Chief Complaint: Lightheaded Stated Complaint: DIZZINESS Time Seen by Provider: 01/15/20 11:08 History Source: Patient Exam Limitations: No Limitations - History of Present Illness Initial Comments: 01/15/20 12:11 The patient is a 89 year old female with a significant past medical history of diabetes, left eye blindness, hypertension, and hyperlipidemia who presents to the emergency department with several months of lightheadedness described as she feels as if she will faint with associated things scratching in her head. As per patients RELIABILITY TECHNICIANS at bedside, they were in registration for an outpatient MRI at which time they realized it was actually scheduled for next week. She notes the patient was in the seating position at which time she had another episode prompting a rapid response to be called. While in the ED, the patient notes her symptoms have resolved while at rest but, upon changing positions she notes transient lightheadedness only when moving. She denies any headache, chest pain, or changes in strength/sensation. Allergies: NKDA Primary Care Physician: Dr. William Past History - Medical History Allergies/Adverse Reactions: Allergies Allergy/AdvReac Type Severity Reaction Status Date / Time No Known Allergies Allergy Verified 08/05/19 11:54 Home Medications: Ambulatory Orders Unobtainable Home Med List 0 dose .ROUTE UTDICT 01/24/13 Acetaminophen [Tylenol .Regular Strength -] 650 mg PO Q6H PRN #0 tablet 04/05/17 Amlodipine Besylate [Norvasc -] 10 mg PO DAILY tablet 04/05/17 Atorvastatin Ca [Lipitor] 20 mg PO HS tablet 04/05/17 Lisinopril [Prinivil] 20 mg PO DAILY tablet 04/05/17 Meclizine HCl [Antivert -] 25 mg PO Q6H PRN #0 tablet 04/05/17 COPD: No Diabetes: Yes HTN: Yes Hypercholesterolemia: Yes - Immunization History Immunization Up to Date: Yes - Psycho-Social/Smoking History Smoking Status: No Smoking History: Never smoked Have you smoked in the past 12 months: No Number of Cigarettes Smoked Daily: 0 Review of Systems - Review of Systems Able to Perform ROS?: Yes Comments:: 01/15/20 12:12 CONSTITUTIONAL: No fever, no chills, no fatigue EYES: No visual changes ENT: No ear pain, no sore throat CARDIOVASCULAR: +Lightheadedness. No chest pain, no palpitations RESPIRATORY: No cough, no SOB GI: No abdominal pain, no nausea, no vomiting, no constipation, no diarrhea GENITOURINARY: No dysuria, no frequency, no hematuria MUSKULOSKELETAL: No back pain, no joint pain, no myalgias SKIN: No rash NEURO: No headache *Physical Exam - Physical Exam 01/15/20 13:54 CONSTITUTIONAL: Well-appearing; well-nourished; in no apparent distress HEAD: Normocephalic; atraumatic EYES: PERRL; EOM intact ENMT: External appears normal; normal oropharynx NECK: Supple; non-tender; no cervical lymphadenopathy CARD: Normal S1, S2; no murmurs, rubs, or gallops RESP: Normal chest excursion with respiration; breath sounds clear and equal bilaterally; no wheezes, rhonchi, or rales ABD: Soft, non-distended; non-tender; no palpable organomegaly, no palpable hernias EXT: Normal ROM in all four extremities; non-tender to palpation; distal pulses intact SKIN: Warm, dry, no rash NEURO: Alert, awake, appropriate. Cranial nerves 2-12 intact. No deficits to light touch and temperature in face, upper extremities and lower extremities. No motor deficits in the in face, upper extremities and lower extremities. No pronator drift. Normoreflexic in the upper and lower extremities. Normal speech. Toes are down-going bilaterally Heart Score/ECG Review #1 01/15/20 12:59 EKG performed at: 15 January 2020 11:02:10 Vent Rate: 83 bpm DC interval: 148 ms QRS duration: 76 ms QT/QTc: 378/444 ms P-R-T axes: 47 41 62 Sinus rhythm with premature atrial complexes Cannot rule out anterior infarct, age undetermined Abnormal ECG ED Treatment Course - LABORATORY CBC & Chemistry Diagram: 01/15/20 11:47 01/15/20 11:47 - ADDITIONAL ORDERS Additional order review: Laboratory Results 01/15/20 11:07 POC Glucometer 204 01/15/20 11:07 POC Glucometer 204 Medical Decision Making - Medical Decision Making 01/15/20 14:40 Patient is a well-appearing 89-year-old female with history of hypertension hyperlipidemia who presented to the ER from registration for near syncopal symptoms that rapidly resolved. In the ED, patient is awake and alert, without focal neuro deficits. EKG revealed no evidence of acute ischemia or dysrhythmia. Serial cardiac enzymes within normal limit. Patient is at baseline and able to ambulate without symptomatology. Patient wishes to be discharged and follow-up as an outpatient. I do not suspect cardiogenic syncope at this time. Will discharge with PMD follow-up and MRI in 1 week. Discharge - Discharge Information Problems reviewed: Yes Clinical Impression/Diagnosis: Near syncope, Dizziness Condition: Stable Disposition: HOME - Admission No - Follow up/Referral Referrals: Remigio William MD [Primary Care Provider] - - Patient Discharge Instructions Patient Printed Discharge Instructions: Fainting, DI for Syncope in Adults (Fainting), DI for Dizziness-Nonvertigo Print Language: KAZAKH - Post Discharge Activity
[2020-01-15 15:03] VITALS: BP 130/51; PULSE 76
== END 2020-01-15 15:04 | disposition home or self-care (01) ==
LOC: JER 10:53
PROC: 3E0337Z Introduction of Electrolytic and Water Balance Substance into Peripheral Vein, Percutaneous Approach (ICD-10-PCS; principal; 2020-01-15)
DX: R55 Syncope and collapse (principal); R42 Dizziness and giddiness
CPT/HCPCS: 36415; 70450-TC; 71045-TC-FY; 80053; 82550; 82962; 83735; 84484; 85025; 93005; 93010; 99285-25

== ENCOUNTER 2021-03-17 10:56 | Inpatient (IN) | payer OTHER ==
[2021-03-17 11:20] VITALS: BMI 31.7
[2021-03-17 11:51] LABS: EPITHELIAL CELLS MANY /hpf
[2021-03-17] MEDS ORDERED: CEFTRIAXONE 1,000 MG in DEXTROSE 5%-WATER - 50 ML IVPB ONE (12:06)
[2021-03-17] MEDS ORDERED: AZITHROMYCIN IVPB 500 MG in DEXTROSE 5%-WATER - 250 ML IVPB ONE (12:06)
[2021-03-17] MEDS ORDERED: cefTRIAXone SODIUM 1 GM VIAL ONE (12:40)
[2021-03-17] MEDS ORDERED: AZITHROMYCIN 500 MG VIAL IVPB ONE (12:40)
[2021-03-17 12:52] LABS: ACTIVATED PTT 25.1 SECONDS (25.2-36.5)
[2021-03-17 12:56] LABS: INR 1.31 (0.82-1.09); PROTHROMBIN TIME (PATIENT) 14.4 SEC (10.2-13.0)
[2021-03-17 13:01] LABS: ALBUMIN 3.7 g/dl (3.4-5.0); ALK PHOS 79 U/L (45-117); ANION GAP 13 MMOL/L (8-16); BILIRUBIN,TOTAL 0.6 mg/dl (0.2-1); CALCIUM 9.4 mg/dl (8.5-10); CHLORIDE 102 mmol/L (98-107); CO2 21 mmol/L (21-32); CREATININE 0.8 mg/dl (0.55-1.3); EOS % 0.2 % (0-4.5); GLUCOSE,RANDOM 137 mg/dl (74-106); MEAN CELL VOLUME 85.4 fl (80-96); SGOT/AST 20 U/L (15-37); SGPT/ALT 21 U/L (13-61); SODIUM 136 mmol/L (136-145); WHITE BLOOD COUNT 15.1 K/mm3 (4.0-10.8)
[2021-03-17] MEDS ORDERED: ACETAMINOPHEN 1000 MG/100 ML VIAL (NON FORMULARY) IVPB ONE (13:01)
[2021-03-17] MEDS ORDERED: ACETAMINOPHEN INJECTION 100 ML IVPB ONE (13:02)
[2021-03-17 13:08] LABS: BASO % 0.8 % (0-2.0); HEMATOCRIT 43.7 % (32.4-45.2); MCH 27.4 pg (25.7-33.7); MEAN PLT VOLUME 10.6 fl (7.5-11.1); PLATELET COUNT 187 10^3/uL (134-434); RBC 5.12 M/mm3 (3.60-5.2); RDW 12.7 % (11.6-15.6)
[2021-03-17 13:40] LABS: VENOUS PCO2 47.3 mmHg (38-52); VENOUS PH 7.348 (7.310-7.410)
[2021-03-17] MEDS ORDERED: SODIUM CHLORIDE 0.9% 1000 ML INFUS.BAG IV ONE (15:32)
[2021-03-17] MEDS ORDERED: LACTATED RINGERS SOLUTION 1000 ML INFUS.BAG IV ONE (15:45)
[2021-03-17] MEDS ORDERED: dilTIAZem HCL 50 MG/10 ML - 10 ML VIAL IVPUSH ONE ×2 (17:29→18:42)
[2021-03-17] MEDS ORDERED: dilTIAZem HCL 125 MG/25 ML - 25 ML VIAL ONE ×2 (17:33→18:29)
[2021-03-17] MEDS ORDERED: ACETAMINOPHEN 325 MG TABLET (FP) PO PRN (19:12)
[2021-03-17 20:50] LABS: HEMATOCRIT 41.4 % (32.4-45.2); HEMOGLOBIN 13.7 GM/dl (10.7-15.3); MCH 27.9 pg (25.7-33.7); MCHC 33.1 g/dl (32.0-36.0); MEAN CELL VOLUME 84.2 fl (80-96); MEAN PLT VOLUME 10.5 fl (7.5-11.1); PLATELET COUNT 192 10^3/uL (134-434); RBC 4.91 M/mm3 (3.60-5.2); RDW 12.8 % (11.6-15.6); WHITE BLOOD COUNT 16.4 K/mm3 (4.0-10.8)
[2021-03-17] MEDS ORDERED: HEPARIN NA (PORCINE) 5,000 UNITS/ML 1ML VIAL ONE (23:39)
[2021-03-17] MEDS: HEPARIN NA (PORCINE) 5,000 UNITS/ML 1ML VIAL SQ SCH (23:40)
[2021-03-18] MEDS ORDERED: dilTIAZem HCL 30 MG TABLET ONE ×2 (00:28→06:46)
[2021-03-18] MEDS: dilTIAZem HCL 30 MG TABLET PO SCH ×4 (00:28→19:05)
[2021-03-18 07:43] LABS: HEMATOCRIT 37.4 % (32.4-45.2); HEMOGLOBIN 12.1 GM/dl (10.7-15.3); MCH 27.8 pg (25.7-33.7); MCHC 32.5 g/dl (32.0-36.0); MEAN CELL VOLUME 85.6 fl (80-96); MEAN PLT VOLUME 10.9 fl (7.5-11.1); PLATELET COUNT 175 10^3/uL (134-434); RBC 4.37 M/mm3 (3.60-5.2); RDW 12.6 % (11.6-15.6); WHITE BLOOD COUNT 12.5 K/mm3 (4.0-10.8)
[2021-03-18 07:48] LABS: ALBUMIN 2.8 g/dl (3.4-5.0); BILIRUBIN,TOTAL 0.5 mg/dl (0.2-1); CALCIUM 8.8 mg/dl (8.5-10); CREATININE 0.8 mg/dl (0.55-1.3); TOT PROT 6.2 g/dl (6.4-8.2)
[2021-03-18 07:54] LABS: CHOLESTEROL 181 mg/dl (50-200); HDL CHOLESTEROL 52 mg/dl (40-60); TRIGLYCERIDES 50 mg/dl (0-150)
[2021-03-18 08:21] LABS: LDL CHOLESTEROL (ONLY SJRH) 119 mg/dL (5-100)
[2021-03-18] MEDS: HEPARIN NA (PORCINE) 5,000 UNITS/ML 1ML VIAL SQ SCH ×2 (12:40→21:36)
[2021-03-18] MEDS ORDERED: cefTRIAXone SODIUM 1 GM VIAL ONE (13:22)
[2021-03-18] MEDS ORDERED: DEXTROSE 5%-WATER - 50 ML IVPB ONE (13:23)
[2021-03-18] MEDS: methylPREDNISolone NA SUCC 40 MG/1 ML VIAL IVPUSH SCH ×2 (14:03→19:05)
[2021-03-18] MEDS: CEFTRIAXONE 1 GM in DEXTROSE 5%-WATER - 50 ML IVPB SCH (14:03)
[2021-03-18] MEDS: AZITHROMYCIN IVPB 500 MG/250 ML BAG IVPB SCH (14:04)
[2021-03-18] MEDS: ALBUTEROL SO4 2.5/IPRATROPIUM 0.5 INH SOL 3 ML VIAL.NEB. NEB SCH ×2 (14:12→20:18)
[2021-03-19] MEDS: dilTIAZem HCL 30 MG TABLET PO SCH ×3 (00:05→11:56)
[2021-03-19] MEDS ORDERED: MELATONIN 5 MG TABLETS PO ONE (00:24)
[2021-03-19] MEDS ORDERED: LORazepam 2 MG/ML SDV VIAL ONE (01:10)
[2021-03-19] MEDS ORDERED: LORazepam 2 MG/ML SDV VIAL IVPUSH ONE ×3 (01:22→20:11)
[2021-03-19] MEDS: methylPREDNISolone NA SUCC 40 MG/1 ML VIAL IVPUSH SCH ×3 (02:25→17:42)
[2021-03-19] MEDS: ALBUTEROL SO4 2.5/IPRATROPIUM 0.5 INH SOL 3 ML VIAL.NEB. NEB SCH ×3 (02:55→20:40)
[2021-03-19 08:12] LABS: BASO % 0.2 % (0-2.0); HEMOGLOBIN 13.1 GM/dL (10.7-15.3); LYMPH % 9.2 % (8-40); MCH 28.3 pg (25.7-33.7); MCHC 33.5 g/dl (32.0-36.0); MEAN CELL VOLUME 84.6 fl (80-96); MEAN PLT VOLUME 9.9 fl (7.5-11.1); MONO % 2.5 % (3.8-10.2); NEUT % 88.1 % (42.8-82.8); PLATELET COUNT 178 10^3/uL (134-434); RBC 4.61 M/mm3 (3.60-5.2); RDW 13.4 % (11.6-15.6); WHITE BLOOD COUNT 9.9 K/mm3 (4.0-10.0)
[2021-03-19 08:33] LABS: CALCIUM 9.5 mg/dL (8.5-10.1)
[2021-03-19 08:34] LABS: BLOOD UREA NITROGEN 29.9 mg/dL (7-18)
[2021-03-19 08:37] LABS: CREATININE 1.3 mg/dL (0.55-1.3)
[2021-03-19 08:38] LABS: BILIRUBIN,TOTAL 0.7 mg/dL (0.2-1); TOT PROT 7.6 g/dl (6.4-8.2)
[2021-03-19] MEDS ORDERED: cefTRIAXone SODIUM 1 GM VIAL ONE (09:29)
[2021-03-19] MEDS ORDERED: DEXTROSE 5%-WATER - 50 ML IVPB ONE (09:29)
[2021-03-19] MEDS: CEFTRIAXONE 1 GM in DEXTROSE 5%-WATER - 50 ML IVPB SCH (09:34)
[2021-03-19] MEDS: AZITHROMYCIN IVPB 500 MG/250 ML BAG IVPB SCH (09:36)
[2021-03-19] MEDS: HEPARIN NA (PORCINE) 5,000 UNITS/ML 1ML VIAL SQ SCH ×2 (09:51→23:32)
[2021-03-19 10:04] LABS: EPI CELLS 33 /uL (0-25.1); HYALINE CASTS 17 /uL (0-3.1); URINE APPEARANCE CLOUDY; URINE BACTERIA 46 /uL (0-1359); URINE BILIRUBIN NEGATIVE (NEGATIVE); URINE COLOR YELLOW; URINE GLUCOSE (UA) TRACE (NEGATIVE); URINE KETONE TRACE (NEGATIVE); URINE LEUK ESTERASE NEGATIVE (NEGATIVE); URINE NITRITE NEGATIVE (NEGATIVE); URINE PROTEIN 2+ (NEGATIVE); URINE RBC 14 /uL (0-23.9); URINE UROBILINOGEN 0.2 mg/dL (0.2-1.0); URINE WBC 27 /uL (0-25.8)
[2021-03-19] MEDS: dilTIAZem HCL 60 MG TABLET PO SCH (17:42)
[2021-03-19] MEDS ORDERED: HALOPERIDOL LACTATE 5 MG/ML IM ONE (19:49)
[2021-03-19] MEDS: INSULIN (LEVEMIR) 100 UNITS/ML UNITS SQ SCH (23:29)
[2021-03-19] MEDS: INSULIN SLIDING SCALE (NOVOLOG) 1 VIAL SQ SCH (23:38)
[2021-03-20] MEDS: dilTIAZem HCL 60 MG TABLET PO SCH ×4 (02:43→17:08)
[2021-03-20] MEDS: methylPREDNISolone NA SUCC 40 MG/1 ML VIAL IVPUSH SCH (02:43)
[2021-03-20] MEDS: INSULIN SLIDING SCALE (NOVOLOG) 1 VIAL SQ SCH ×4 (06:35→21:51)
[2021-03-20] MEDS: ALBUTEROL SO4 2.5/IPRATROPIUM 0.5 INH SOL 3 ML VIAL.NEB. NEB SCH ×3 (08:12→20:15)
[2021-03-20] MEDS ORDERED: cefTRIAXone SODIUM 1 GM VIAL ONE (08:52)
[2021-03-20] MEDS ORDERED: DEXTROSE 5%-WATER - 50 ML IVPB ONE (08:53)
[2021-03-20 08:57] LABS: HEMATOCRIT 37.9 % (32.4-45.2); HEMOGLOBIN 12.5 GM/dL (10.7-15.3); MCH 27.7 pg (25.7-33.7); MEAN CELL VOLUME 83.9 fl (80-96); MEAN PLT VOLUME 9.6 fl (7.5-11.1); PLATELET COUNT 238 10^3/uL (134-434); RBC 4.52 M/mm3 (3.60-5.2); RDW 13.5 % (11.6-15.6); WHITE BLOOD COUNT 15.4 K/mm3 (4.0-10.0)
[2021-03-20 09:38] LABS: CALCIUM 9.8 mg/dL (8.5-10.1)
[2021-03-20 09:39] LABS: BLOOD UREA NITROGEN 36.5 mg/dL (7-18)
[2021-03-20 09:42] LABS: BILIRUBIN,TOTAL 0.2 mg/dL (0.2-1); CREATININE 1.1 mg/dL (0.55-1.3); TOT PROT 7.6 g/dl (6.4-8.2)
[2021-03-20 09:58] LABS: ANISOCYTOSIS 2+; MACROCYTOSIS 0; PLATELET ESTIMATE NORMAL
[2021-03-20] MEDS: PANTOPRAZOLE 40 MG TABLET PO SCH (10:00)
[2021-03-20] MEDS: HEPARIN NA (PORCINE) 5,000 UNITS/ML 1ML VIAL SQ SCH (10:00)
[2021-03-20] MEDS: CEFTRIAXONE 1 GM in DEXTROSE 5%-WATER - 50 ML IVPB SCH (10:41)
[2021-03-20] MEDS: AZITHROMYCIN IVPB 500 MG/250 ML BAG IVPB SCH (10:41)
[2021-03-20] MEDS: ENOXAPARIN NA (PORCINE) 80 MG/0.8 ML DISP.SYRIN SQ SCH ×2 (14:19→21:43)
[2021-03-20] MEDS: ATORVASTATIN CA 20 MG TABLET (FP) PO SCH ×2 (21:44→22:20)
[2021-03-20] MEDS: INSULIN (LEVEMIR) 100 UNITS/ML UNITS SQ SCH (21:45)
[2021-03-20] MEDS ORDERED: LORazepam 2 MG/ML SDV VIAL IVPUSH ONE (21:48)
[2021-03-20] MEDS ORDERED: dilTIAZem HCL 25 MG/5 ML - 5 ML VIAL IVPUSH ONE (22:50)
[2021-03-21] MEDS: dilTIAZem HCL 60 MG TABLET PO SCH ×4 (00:32→17:03)
[2021-03-21] MEDS ORDERED: HALOPERIDOL LACTATE 5 MG/ML IM ONE (02:48)
[2021-03-21] MEDS: INSULIN SLIDING SCALE (NOVOLOG) 1 VIAL SQ SCH ×4 (06:34→21:15)
[2021-03-21] MEDS: ALBUTEROL SO4 2.5/IPRATROPIUM 0.5 INH SOL 3 ML VIAL.NEB. NEB SCH ×3 (07:45→21:06)
[2021-03-21] MEDS ORDERED: cefTRIAXone SODIUM 1 GM VIAL ONE (08:41)
[2021-03-21] MEDS ORDERED: DEXTROSE 5%-WATER - 50 ML IVPB ONE (08:41)
[2021-03-21 08:57] LABS: BASO % 0.3 % (0-2.0); EOS % 0.1 % (0-4.5); HEMATOCRIT 39.1 % (32.4-45.2); HEMOGLOBIN 12.8 GM/dL (10.7-15.3); LYMPH % 4.4 % (8-40); MCH 27.5 pg (25.7-33.7); MCHC 32.7 g/dl (32.0-36.0); MEAN CELL VOLUME 84.1 fl (80-96); MEAN PLT VOLUME 10.1 fl (7.5-11.1); MONO % 5.9 % (3.8-10.2); NEUT % 89.3 % (42.8-82.8); PLATELET COUNT 280 10^3/uL (134-434); RBC 4.64 M/mm3 (3.60-5.2); RDW 13.3 % (11.6-15.6); WHITE BLOOD COUNT 14.7 K/mm3 (4.0-10.0)
[2021-03-21 09:29] LABS: CALCIUM 9.8 mg/dL (8.5-10.1)
[2021-03-21 09:31] LABS: BLOOD UREA NITROGEN 36.2 mg/dL (7-18)
[2021-03-21 09:33] LABS: CREATININE 1.1 mg/dL (0.55-1.3)
[2021-03-21 09:35] LABS: BILIRUBIN,TOTAL 0.5 mg/dL (0.2-1); TOT PROT 7.4 g/dl (6.4-8.2)
[2021-03-21] MEDS: AZITHROMYCIN IVPB 500 MG/250 ML BAG IVPB SCH (10:10)
[2021-03-21] MEDS: CEFTRIAXONE 1 GM in DEXTROSE 5%-WATER - 50 ML IVPB SCH (10:50)
[2021-03-21] MEDS: ENOXAPARIN NA (PORCINE) 80 MG/0.8 ML DISP.SYRIN SQ SCH ×2 (10:53→21:17)
[2021-03-21] MEDS: PANTOPRAZOLE 40 MG TABLET PO SCH (10:53)
[2021-03-21] MEDS: INSULIN (LEVEMIR) 100 UNITS/ML UNITS SQ SCH (21:15)
[2021-03-21] MEDS: ATORVASTATIN CA 20 MG TABLET (FP) PO SCH (21:15)
[2021-03-22] MEDS: dilTIAZem HCL 60 MG TABLET PO SCH ×4 (00:13→17:02)
[2021-03-22] MEDS: INSULIN SLIDING SCALE (NOVOLOG) 1 VIAL SQ SCH ×4 (06:12→21:23)
[2021-03-22 07:39] LABS: HEMATOCRIT 37.9 % (32.4-45.2); HEMOGLOBIN 12.5 GM/dL (10.7-15.3); MCH 27.5 pg (25.7-33.7); MCHC 32.9 g/dl (32.0-36.0); MEAN CELL VOLUME 83.7 fl (80-96); MEAN PLT VOLUME 9.2 fl (7.5-11.1); PLATELET COUNT 237 10^3/uL (134-434); RBC 4.52 M/mm3 (3.60-5.2); RDW 13.6 % (11.6-15.6); WHITE BLOOD COUNT 12.1 K/mm3 (4.0-10.0)
[2021-03-22 07:57] LABS: BLOOD UREA NITROGEN 34.3 mg/dL (7-18); CALCIUM 9.4 mg/dL (8.5-10.1)
[2021-03-22 08:00] LABS: ALBUMIN 2.4 g/dl (3.4-5.0); CREATININE 1.1 mg/dL (0.55-1.3)
[2021-03-22 08:03] LABS: BILIRUBIN,DIRECT < 0.1 mg/dL (0.0-0.2); SGOT/AST 40 U/L (15-37); SGPT/ALT 76 U/L (13-61)
[2021-03-22 08:05] LABS: ALK PHOS 72 U/L (45-117); BILIRUBIN,TOTAL 0.5 mg/dL (0.2-1); TOT PROT 6.4 g/dl (6.4-8.2)
[2021-03-22] MEDS: ALBUTEROL SO4 2.5/IPRATROPIUM 0.5 INH SOL 3 ML VIAL.NEB. NEB SCH ×3 (08:55→20:29)
[2021-03-22] MEDS ORDERED: DEXTROSE 5%-WATER - 50 ML IVPB ONE (09:09)
[2021-03-22] MEDS ORDERED: cefTRIAXone SODIUM 1 GM VIAL ONE (09:09)
[2021-03-22] MEDS: CEFTRIAXONE 1 GM in DEXTROSE 5%-WATER - 50 ML IVPB SCH (10:01)
[2021-03-22] MEDS: ENOXAPARIN NA (PORCINE) 80 MG/0.8 ML DISP.SYRIN SQ SCH ×2 (10:01→21:21)
[2021-03-22] MEDS: PANTOPRAZOLE 40 MG TABLET PO SCH (10:02)
[2021-03-22 10:46] LABS: ANISOCYTOSIS 1+; MACROCYTOSIS 0; PLATELET ESTIMATE NORMAL
[2021-03-22] MEDS ORDERED: DIGOXIN 0.5 MG/2 ML AMPUL IVPUSH ONE (17:45)
[2021-03-22] MEDS: ATORVASTATIN CA 20 MG TABLET (FP) PO SCH (21:21)
[2021-03-22] MEDS: INSULIN (LEVEMIR) 100 UNITS/ML UNITS SQ SCH (21:21)
[2021-03-23] MEDS: dilTIAZem HCL 60 MG TABLET PO SCH ×5 (00:07→23:49)
[2021-03-23] MEDS ORDERED: DIGOXIN 0.5 MG/2 ML AMPUL IVPUSH ONE (06:00)
[2021-03-23] MEDS: INSULIN SLIDING SCALE (NOVOLOG) 1 VIAL SQ SCH ×4 (06:18→21:53)
[2021-03-23] MEDS: ALBUTEROL SO4 2.5/IPRATROPIUM 0.5 INH SOL 3 ML VIAL.NEB. NEB SCH (08:30)
[2021-03-23] MEDS ORDERED: DEXTROSE 5%-WATER - 50 ML IVPB ONE (09:17)
[2021-03-23] MEDS ORDERED: cefTRIAXone SODIUM 1 GM VIAL ONE (09:17)
[2021-03-23] MEDS: PANTOPRAZOLE 40 MG TABLET PO SCH (10:25)
[2021-03-23] MEDS: APIXABAN 5 MG TABLET PO SCH ×2 (10:25→21:50)
[2021-03-23] MEDS: CEFTRIAXONE 1 GM in DEXTROSE 5%-WATER - 50 ML IVPB SCH (10:40)
[2021-03-23] MEDS: ATORVASTATIN CA 20 MG TABLET (FP) PO SCH (21:51)
[2021-03-23] MEDS: INSULIN (LEVEMIR) 100 UNITS/ML UNITS SQ SCH (21:53)
[2021-03-24] MEDS: dilTIAZem HCL 60 MG TABLET PO SCH (05:43)
[2021-03-24] MEDS: INSULIN SLIDING SCALE (NOVOLOG) 1 VIAL SQ SCH ×2 (06:15→11:07)
[2021-03-24 08:51] LABS: BASO % 0.1 % (0-2.0); EOS % 2.3 % (0-4.5); HEMATOCRIT 37.4 % (32.4-45.2); HEMOGLOBIN 12.1 GM/dL (10.7-15.3); LYMPH % 19.7 % (8-40); MCH 27.2 pg (25.7-33.7); MCHC 32.3 g/dl (32.0-36.0); MEAN CELL VOLUME 84.2 fl (80-96); MEAN PLT VOLUME 8.8 fl (7.5-11.1); MONO % 7.7 % (3.8-10.2); NEUT % 70.2 % (42.8-82.8); PLATELET COUNT 255 10^3/uL (134-434); RBC 4.44 M/mm3 (3.60-5.2); RDW 13.4 % (11.6-15.6)
[2021-03-24] MEDS ORDERED: cefTRIAXone SODIUM 1 GM VIAL ONE (09:11)
[2021-03-24] MEDS ORDERED: DEXTROSE 5%-WATER - 50 ML IVPB ONE (09:12)
[2021-03-24 09:16] LABS: CALCIUM 8.7 mg/dL (8.5-10.1)
[2021-03-24 09:18] LABS: ALBUMIN 2.4 g/dl (3.4-5.0)
[2021-03-24 09:21] LABS: CREATININE 0.8 mg/dL (0.55-1.3)
[2021-03-24 09:23] LABS: TOT PROT 6.1 g/dl (6.4-8.2)
[2021-03-24] MEDS ORDERED: PT OWN MED DRAWER 7, Y5N ONE (11:02)
[2021-03-24] MEDS: CEFUROXIME AXETIL 500 MG TABLET PO SCH ×2 (11:07→16:31)
[2021-03-24] MEDS: APIXABAN 5 MG TABLET PO SCH (11:07)
[2021-03-24] MEDS ORDERED: PANTOPRAZOLE 40 MG TABLET PO SCH (12:00)
[2021-03-24 15:21] VITALS: BP 140/58; PULSE 101; TEMP 98.1
[2021-03-25] MEDS ORDERED: LISINOPRIL 5 MG TABLET PO SCH (10:00)
== END 2021-03-24 17:03 | disposition home or self-care (01) | DRG 871 ==
LOC: FER 10:56 → J4W 03-18 10:05
PROVIDERS: ADMIT Family Medicine; ATTEND Family Medicine
DX: A41.9 Sepsis, unspecified organism (principal); J18.9 Pneumonia, unspecified organism; J90 Pleural effusion, not elsewhere classified; F03.90 Unspecified dementia, unspecified severity, without behavioral disturbance, psychotic disturbance, mood disturbance, and anxiety; J98.01 Acute bronchospasm; R00.0 Tachycardia, unspecified; I48.91 Unspecified atrial fibrillation; N18.2 Chronic kidney disease, stage 2 (mild); N20.0 Calculus of kidney; R31.29 Other microscopic hematuria; D72.829 Elevated white blood cell count, unspecified; I10 Essential (primary) hypertension; E78.5 Hyperlipidemia, unspecified
CPT/HCPCS: 36415; 70450-TC; 71045-TC-FY; 71101-TC-RT-FY; 71250-TC; 74176-TC; 76705-TC; 76775-TC; 80048; 80053; 80061; 80076; 81003; 81015; 82550; 82570; 82803; 82962; 83036; 83605; 83735; 84156; 84439; 84443; 84484; 85025; 85027; 85610; 85730; 87040; 87070; 87077; 87086; 87205; 87804; 87899; 93005; 93306-TC; 93308; 94640; 97116-GP; 97162-GP; 99291; C9803; J0131; J1644; U0003; U0005